=== PATIENT | male | born 2000 | race Caucasian/White ===

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

== ENCOUNTER 2023-02-05 14:26 | Outpatient (CLI) | payer BC, SELFPAY ==
--- NOTE | ~2023-02-05 | XR_ITS ---
EXAM: XR ankle RT min 3V DATE: 02/05/2023 14:50 HISTORY: right inversion injury,LATERAL PAIN,ACUTE . COMPARISON: None available. FINDINGS: Normal mineralization. Tiny ossific fragments in the medial gutter. No other fracture or d islocation. No lytic or blastic lesion. Mild degenerative change at the tibiotalar joint. No erosion or periosteal change. Ankle joint effusion. Marked anterior and lateral soft tissue swelling. IMPRESSION: Ossific fragments in the medial gutter may represent acute or chronic avulsion fragments. No other acute or potentially acute osseous finding in the right ankle. Reviewed, dictated and finalized at location K. IMPRESSION: Ossific fragments in the medial gutter may represent acute or chron ic avulsion fragments. No other acute or potentially acute osseous finding in t he right ankle.
== END 2023-02-05 14:27 | disposition home or self-care (01) ==
LOC: CHSIMG 14:29
PROVIDERS: PCP Internal Medicine; Visit Provider Internal Medicine
DX: S99.911A Unspecified injury of right ankle, initial encounter (principal)
CPT/HCPCS: 73610